=== PATIENT | female | born 1985 | race Caucasian/White ===

== ENCOUNTER → 2016-12-08 | Outpatient (CLI) | payer MEDICAID | LOC: FIMAGING 10:02 | PROVIDERS: ATTEND Obstetrics & Gynecology | DX: O99.332 Smoking (tobacco) complicating pregnancy, second trimester (principal); Z3A.19 19 weeks gestation of pregnancy ==

== ENCOUNTER 2017-04-22 06:50 | Inpatient (IN) | payer MEDICAID ==
[2017-04-22] MEDS ORDERED: AMPICILLIN SODIUM 2 GM in NS 100 ML IV ONE ×2 (09:07→09:30)
[2017-04-22 09:09] LABS: ADD DIFF? NO; ADD MORPH? NO; ADD SCAN? NO; ATYPICAL LYMPHOCYTE FLAG 0 (0-99); FRAGMENT RBC FLAG 0 (0-99); HEMATOCRIT 37.6 % (38.0-47.0); HEMOGLOBIN 12.8 g/dL (12.6-16.3); LEFT SHIFT FLG 0 (0-99); LIPEMIA HEMOLYSIS FLAG 90 (0-99); MEAN CELL HEMOGLOBIN 29.9 pg (27.9-34.1); MEAN CELL VOLUME 87.9 fL (81.5-99.8); MEAN PLATELET VOLUME 11.5 fL (8.7-11.7); PLATELET CLUMPS FLAG 0 (0-99); PLATELET COUNT 322 10^3/uL (150-400); RED BLOOD CELL COUNT 4.28 10^6/uL (4.18-5.33); RED CELL DISTRIBUTION WIDTH 13.9 % (11.5-15.2)
[2017-04-22 09:26] LABS: PHENCYCLIDINE URINE BCH < 6 ng/ml (NEGATIVE); PHENCYCLIDINE URINE BCH NEGATIVE (NEGATIVE); TETRAHYDROCANNABINOL URINE < 5 ng/mL (NEGATIVE); TETRAHYDROCANNABINOL URINE NEGATIVE (NEGATIVE)
[2017-04-22] MEDS ORDERED: LR 1,000 ML IV PRN (11:21)
[2017-04-22] MEDS ORDERED: TERBUTALINE SULFATE 1 MG/ML VIAL IV PRN (11:21)
[2017-04-22] MEDS ORDERED: EPSOM SALT 454 GM TP PRN (11:21)
[2017-04-22] MEDS ORDERED: OLIVE OIL 118 ML BTL MISC PRN (11:21)
[2017-04-22] MEDS ORDERED: OXYTOCIN/RINGERS LACTATE 1,000 ML IV PRN (11:21)
[2017-04-22] MEDS: NICOTINE 21 MG/24 HR PATCH TD SCH (11:56)
[2017-04-22] MEDS ORDERED: OXYTOCIN 10 UNIT/ML VIAL ONE (12:47)
[2017-04-22] MEDS ORDERED: TERBUTALINE SULFATE 1 MG/ML VIAL ONE (12:47)
[2017-04-22] MEDS ORDERED: LIDOCAINE 1% 300 MG/30 ML SDV ONE (12:47)
[2017-04-22] MEDS ORDERED: OLIVE OIL 118 ML BTL ONE (12:47)
[2017-04-22] MEDS ORDERED: AMMONIA AROMATIC 1 EACH AMP IH ONE (12:47)
[2017-04-22] MEDS ORDERED: MISOPROSTOL 200 MCG TAB ONE (12:48)
--- NOTE | 2017-04-22 13:25 | GHP ---
[f rep st] PREOP HISTORY AND PHYSICAL DATE OF ADMISSION: 04/22/2017 HISTORY OF PRESENT ILLNESS: The patient is a 31-year-old G1, P0, at 39 weeks gestation with an estim ated due date of 04/29/2017, who presents with complaints of leakage of fluid since approximately 3:0 0 a.m. and mild contraction discomfort. Upon admission, the patient was noted to have a small amount of clear leakage of fluid, and was confirmed positive with AmniSure and Nitrazine. The patient was noted to have contractions on the monitor, but not always palpating any discomfort. The patient has had increasing contraction discomfort during the time on Labor and Delivery. The patient had scant p ink tinged discharge last night. She reports good movement. The patient has had care since [address] Hawkins in [place]. The patient has a significant history durin g the first trimester of with exposure to meth and alcohol. The patient is also a tobacco smoker. The patient is admitted for rupture of membranes with early contraction pattern. HISTORY: records have been obtained from [facility], and do show that the patient had consistent visits after November 14. The patient did have several ultrasounds evaluating for growth. Her first an anatomy ultrasound was December [address] Ford at [facility]. There was no anatomic abnormaliti es noted, but with no ability to totally rule out FAS. The patient also had a growth ultrasound in matti and also March 21, and the most recent ultrasound reveals estimated weight at the 34th p ercentile. At that time, the baby was breech. LABORATORY DATA: Full records and labs are reviewed. Maternal blood type is A positive wit h negative antibody screen. CBC showed hemoglobin 12.5, hematocrit 36.9, and platelets of 354. Hepa titis B surface antigen was nonreactive. HIV nonreactive. Syphilis test was negative. Rubella anti body was nonimmune. Quad screen was negative. Urine culture was negative. Vaginal culture revealed Gardnerella in November. Complete drug screen in November was negative. Pap smear November 14 revealed negative di agnosis, but positive HPV, negative for type 16 and 18. Gonorrhea and chlamydia were negative. One- hour Glucola was normal. GBS culture was positive. PAST MEDICAL HISTORY: The patient reports being told that she had polycystic ovarian syndrome with l ifelong pattern of oligomenorrhea with 2-3 menses a year. She was told that she would never be able to conceive, and states that is the reason she has never used control. The patient also had ch ickenpox as a child, and also reports shingles outbreak on her right mid chest area 2-3 years ago. PAST SURGICAL HISTORY: Negative. PAST OBSTETRIC HISTORY: The patient denies any prior conceptions. 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 The patient denies ever having had sexually transmitted infection in the past. Reports in the past she did have an abnormal Pap smear, and had a biopsy at one point, but denies remembering cr yotherapy or a LEEP procedure. ALLERGIES: The patient has no known drug allergies. CURRENT MEDICATIONS: Denies any medications. SOCIAL HISTORY: The patient reports she currently smokes 1 pack a day. Reports using meth for appro ximately 6 months when she was 17, and then restarted the habit several years ago. Also reports alco hol abuse in the past. The patient reports abstaining for approximately 20 days prior to October. How ever, relapsed shortly, and then reports that she has now abstained since November 01. Again, a urine d rug screen on November 14 was negative. The patient denies any other drugs other than IV meth, and alcohol , and is currently a smoker, and has a history of pot use. REVIEW OF SYSTEMS: A 10-point review of systems done, and above noted findings in HPI. PHYSICAL EXAM: GENERAL: Upon admission, the patient is a well-developed, well-nourished, white fema le, currently having more physical discomfort with the contractions. Many she can still talk through , but some are more intense when breathing through them. VITAL SIGNS: Noted in nursing documentatio n, normal. The patient is afebrile. heart tone monitoring effected quite a bit by baby moveme nt, but does show baseline in the 130s with good variability and accelerations, but not prolonged mon itoring to satisfy a category 1 tracing. Contractions noted every 3-5 minutes. PELVIC EXAM: There is clear fluid noted. Cervix is 1 cm dilated, 85% effaced, and -1 station. Vertex is verified by ul trasound and on manual exam. EXTREMITIES: Nontender and no edema noted. Urine drug screen is obtai martha and is negative. ASSESSMENT: 1. Intrauterine at 39 weeks gestation with estimated due date of 04/29, based on a 19 week 5 day exam. 2. Positive group B Streptococcus, and the patient is receiving ampicillin. 3. Spontaneous rupture of membranes at 3:00 a.m. 4. History of methamphetamine and alcohol use in the first trimester. Anatomy ultrasound at 19 week s and quad screen negative. PLAN: We will do expectant management at this point with IV ampicillin. The patient is aware of keyur n medication options, and desires an epidural when the contractions increase. The patient is aware t hat Pitocin might be needed to increase the contraction pattern. The patient knows Beef Grinder w ill be contacted with her history of drug exposure. The patient is a tobacco user, and a [facility] is ordered. /[id number]/MODL
[2017-04-22] MEDS: AMPICILLIN SODIUM 1 GM in NS 100 ML IV SCH ×3 (13:35→23:19)
[2017-04-22] MEDS ORDERED: fentaNYL 100 MCG/2 ML INJ ONE (14:14)
[2017-04-22] MEDS ORDERED: PHENYLEPHRINE HCL 100 MCG/ML SYR ONE (14:22)
[2017-04-22] MEDS ORDERED: fentaNYL 2MCG/ML/BUP 0.1% RTU 100 ML BAG EP ONE (14:33)
[2017-04-22] MEDS ORDERED: PHENYLEPHRINE HCL 100 MCG/ML SYR IVP PRN (14:53)
[2017-04-22] MEDS ORDERED: ONDANSETRON 4 MG/2 ML VIAL IVP PRN (14:53)
[2017-04-22] MEDS ORDERED: NALOXONE HCL 0.4 MG/ML INJ IVP PRN (14:53)
[2017-04-22] MEDS ORDERED: METOCLOPRAMIDE 10 MG/2 ML VIAL IVP PRN (14:53)
[2017-04-22] MEDS ORDERED: LR 500 ML IV SCH (15:00)
[2017-04-22] MEDS ORDERED: fentaNYL 2MCG/ML/BUP 0.1% RTU 100 ML EP SCH (15:00)
[2017-04-22] MEDS ORDERED: LR 500 ML IV PRN (15:52)
--- NOTE | 2017-04-22 15:57 | OBPROG ---
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 04/22/17 15:53 Subjective/Intrapartum Course: 04/22/17 15:55 pt now comf with MONICA, per RN exam shows no change, still 1 cm dilated and ctxns spaced, with some hypotension with MONICA placement, but good tolerance by FHTs Objective: 04/22/17 08:40 Patient ABO/Rh A POSITIVE 04/22/17 08:40 - SVE Dilation (cm): 1 Effacement (%): 80 Station: -1 Membranes: SROM Amniotic Fluid Color: Clear - Contraction Pattern Assessment Current Contraction Pattern: Irregular - FHR Assessment Ledesma FHR (bpm): 120 FHR Pattern Variability: Moderate FHR Category: 2 (mod variability but with some transient variables) Oxytocin Orders Assessment - Pre-Induction/Augmentation Assessment Indication: protracted labor after SROM Presentation: Vertex Gestational Age: 39 week(s) and 0 day(s) Gestational Age Determined By: Ultrasound Estimated Weight: 2501-3400g Membrane Status: Ruptured Current Sterile Vaginal Exam (SVE): /-1 Current Contraction Pattern: Irregular - Heart Rate Pattern Led[place]ma FHR Baseline (bpm): 120 FHR Category: 2 FHR Pattern Variability: Moderate FHR Accelerations: Present FHR Decelerations: Variable - Motley's Score Dilation: 1-2cm Effacement: 80+ Station: -1,0 Cervix: Medium Cervix Position: Mid Motley Score Total: 8 - Induction/Augmentation Consent Risks/Benefits of Procedure Reviewed/Pt Agrees to Proceed: Yes ICD10 Worksheet Patient Problems: Problems Problem Status Onset Drug use complicating in first trimester Acute GBS carrier Acute SROM (spontaneous rupture of membranes) Acute
[2017-04-22] MEDS ORDERED: OXYTOCIN/RINGERS LACTATE 500 ML IV SCH (16:00)
[2017-04-22] MEDS ORDERED: OXYTOCIN/LR *STANDARD DOSE PROTOCOL IV SCH (16:30)
--- NOTE | 2017-04-22 19:04 | OBPROG ---
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 04/22/17 19:02 Objective: 04/22/17 08:40 Patient ABO/Rh A POSITIVE 04/22/17 08:40 - SVE Dilation (cm): 10 Effacement (%): 100 Station: 0 Membranes: SROM Amniotic Fluid Color: Clear Dilation Complete Date: 04/22/17 Dilation Complete Time: 19:00 - Contraction Pattern Assessment Current Contraction Pattern: Regular (q 3-4 min on pit), Irregular - FHR Assessment Led[place]ma FHR (bpm): 120 FHR Pattern Variability: Moderate FHR Category: 2 (with variables) - Physical Exam Estimated Weight: 2501-3400g Oxytocin Orders Assessment - Pre-Induction/Augmentation Assessment Presentation: Vertex Gestational Age: 39 week(s) and 0 day(s) Estimated Weight: 2501-3400g ICD10 Worksheet Patient Problems: Problems Problem Status Onset Drug use complicating in first trimester Acute GBS carrier Acute SROM (spontaneous rupture of membranes) Acute
[2017-04-22] MEDS ORDERED: ACETAMINOPHEN 325 MG TAB PO PRN (20:26)
--- NOTE | 2017-04-22 20:31 | OBDEL ---
Info Type: Vaginal Presentation at Delivery: Vertex L&D Analgesia/Anesthesia Type: Epidural GBS+: Yes Antibiotic Used for + GBS: Ampicillin Intrapartum Medications: Generic Name Dose Route Start Last Admin Trade Name Freq PRN Reason Stop Dose Admin Ampicillin Sodium 1 gm/ Sodium 100 mls @ 200 mls/hr 04/22/17 09:15 04/22/17 17:20 Chloride IV 05/22/17 09:14 100 mls Q4H HARRIET Administration Protocol Nicotine 21 mg 04/22/17 11:30 04/22/17 11:56 Nicoderm Cq TD 10/19/17 11:29 21 mg DAILY HARRIET Administration Discontinued Medications Generic Name Dose Route Start Last Admin Trade Name Freq PRN Reason Stop Dose Admin Ampicillin Sodium 2 gm/ Sodium 110 mls @ 220 mls/hr 04/22/17 09:30 04/22/17 09:33 Chloride IV 04/22/17 09:59 110 mls ONCE ONE Administration - Infant Care Provider Inventory Control Planner/PREDATORY ANIMAL EXTERMINATOR: Cherise Ku - Hospital Course Intrapartum: 04/22/17 15:55 pt with MONICA, feeling pressure like BM. 04/22/17 19:02 Indications for Delivery: SROM Vaginal Delivery - Delivery Provider Delivery Physician/CNM: Essence Mattson - Labor and Delivery Onset of Contractions Date: 04/22/17 Onset of Contractions Time: 09:00 Onset of Contractions Type: Spontaneous Rupture of Membranes Date: 04/22/17 Rupture of Membranes Time: 03:00 Rupture of Membranes Type: Spontaneous Amniotic Fluid Color: Clear Dilation Complete Date: 04/22/17 Dilation Complete Time: 18:57 Placenta Delivery Date: 04/22/17 Placenta Delivery Time: 20:06 Total Hours of Labor: 11 Laceration: 1st Degree (left periurethral and first degree right perineal) Repair: Other (Specify) (none needed) Vaginal Sponge Count Correct: Yes Vaginal Needle Count Correct: Yes Vaginal Sweep Performed: No EBL: 300 Delivery Events: Nuchal Cord (x1 and body cord x1) - Medications Labor Augmentation/Induction Methods Used: Pitocin Labor Augmentation/Induction Indication: Contraction Strength Inadequate [place] Data [place]ma Delivery Date: 04/22/17 Delivery Time: 19:56 ERNA: 04/29/17 Gestational Age: 39 week(s) and 0 day(s) Sex of Infant: Female (Etelvina) Score (1 Min): 7 Score (5 Min): 9 ICD10 Worksheet Patient Problems: Problems Problem Status Onset (spontaneous vaginal delivery) Acute GBS carrier Acute Drug use complicating in first trimester Acute
[2017-04-22] MEDS: IBUPROFEN 600 MG TAB PO PRN (22:52)
[2017-04-23] MEDS: AMPICILLIN SODIUM 1 GM in NS 100 ML IV SCH (01:07)
[2017-04-23] MEDS: IBUPROFEN 600 MG TAB PO PRN ×3 (07:39→20:01)
--- NOTE | 2017-04-23 10:18 | OBPP ---
Progress Note Assessment/Plan: Assessment: ppd# 1 s/p meth and etoh use in - dc'd in early second trimester late care walk in tobacco use breast feeding Plan: nicotine patch routine post care 04/23/17 10:15 Subjective/ Course: 04/23/17 10:16 patient is doing well. really want to go smoke. has nicotine patch. discussed 5x increase risk of SIDS in moms who smoke. advised against smoking and just using the patch. patient will likely decline and go smoke. denies headache, changes in vision, working on breast feeding. pain is controlled. passing gas. normal lochia. Objective: 04/23/17 06:40 Patient ABO/Rh A POSITIVE 04/22/17 08:40 Temp Pulse Resp BP Pulse Ox 36.7 C 83 20 96/59 L 95 04/23/17 00:30 04/23/17 00:30 04/23/17 00:30 04/23/17 00:30 04/23/17 00:30 Physical Exam - Physical Exam Neck: non-tender, full range of motion, supple, normal inspection Respiratory: chest non-tender, lungs clear, normal breath sounds Cardiac/Chest: normal peripheral pulses, regular rate, rhythm Abdomen: normal bowel sounds, non-tender, other (fundus firm and non tender) Extremities: normal range of motion, non-tender, normal inspection, normal capillary refill Skin: normal color, warm/dry Neuro/Psych: no motor/sensory deficits, alert, normal mood/affect, oriented x 3
[2017-04-23] MEDS: NICOTINE 21 MG/24 HR PATCH TD SCH (10:58)
--- NOTE | 2017-04-23 14:45 | ASMTCMCOM ---
CM Note CM Note Notes: Patient living at [facility] in [place]. She will go to her brother's home in [place] for 1wk on discharge then will return to [facility] for continued assist with parenting, housing, school, WIC, CIP, etc. Her parents are here from [place] and will be assisting her when she gets to [place]. Her CM at [facility] is Sera [phone]. This CM called Srea's # and left a message. Mother reported that she had been using substances and wanted to quit and statrted a 45 day program through her Probation, TRT in her first trimester. She is also involved in [employer]. She is working on transitional housing and the ability to go to school. Very motivated to do the right thing for her new baby, . CPS, Lis Bynum [phone] contacted. Patient can be discharged when medically ready. Date Signed: 04/23/2017 02:45 PM Electronically Signed By:Fannie Staples LCSW
[2017-04-23 21:09] VITALS: O2SAT 97
[2017-04-24] MEDS: IBUPROFEN 600 MG TAB PO PRN ×2 (01:53→09:06)
--- NOTE | 2017-04-24 08:42 | OBGCSDC ---
General Delivery Information - General Info : 1 Para: 1 Abortions: 0 Type: Vaginal L&D Analgesia/Anesthesia Type: Epidural Admission Date: 04/22/17 Labs: Patient ABO/Rh A POSITIVE 04/22/17 08:40 Hct 35.3 % (38.0-47.0) L 04/23/17 06:40 - Hospital Course Intrapartum: 04/22/17 15:55 pt with MONICA, feeling pressure like BM. 04/22/17 19:02 : 04/23/17 10:16 patient is doing well. really want to go smoke. has nicotine patch. discussed 5x increase risk of SIDS in moms who smoke. advised against smoking and just using the patch. patient will likely decline and go smoke. denies headache, changes in vision, working on breast feeding. pain is controlled. passing gas. normal lochia. 04/24/17 08:39 SUBJ: Patient is doing well this morning. She denies significant pain, reports minimal lochia and is . She desires discharge home today. OBJ: VSS General: NAD HENT: atraumatic, normocephalic Lungs: CTAB Heart: RRR Abdomen: soft, FF, below umbilicus Extremities: no excessive edema Hct: stable PP (35.3) Vaginal - Delivery Provider Delivery Physician/CNM: Essence Mattson - Diagnosis Labor: Spontaneous Rupture of Membranes Type: Spontaneous Amniotic Fluid Color: Clear Laceration: 1st Degree (left periurethral and first degree right perineal) Repair: Other (Specify) (none needed) Delivery Events: Nuchal Cord (x1 and body cord x1) - Delivery EBL: 300 [place] Data Ledesma Delivery Date: 04/22/17 Delivery Time: 19:56 ERNA: 04/29/17 Gestational Age: 39 week(s) and 2 day(s) Sex of Infant: Female Edwards Weight (gm): 2796 g Score (1 Min): 7 Score (5 Min): 9 Discharge Information - Discharge Information Prescriptions: Ibuprofen [Motrin (*)] 600 mg PO Q6HRS PRN #40 tab PRN Reason: post , inflammation Instruction/Follow Up: Six Weeks (Will f/u with Dr. Wolfgang Hawkins @ [facility])
[2017-04-24] MEDS ORDERED: MEASLES,MUMPS&RUBELLA VACC/PF 0.5 ML VIAL SC ONE (08:46)
[2017-04-24] MEDS: NICOTINE 21 MG/24 HR PATCH TD SCH (09:11)
[2017-04-24 09:44] VITALS: BP 112/75; PULSE 99; RESP 17; TEMP 97.9
== END 2017-04-24 15:45 | disposition home or self-care (01) | DRG 775 ==
LOC: FLD 06:50 → OBSVTOIN 15:10 → FOB 22:45
PROVIDERS: ADMIT Obstetrics & Gynecology; ATTEND Obstetrics & Gynecology Gynecology
PROC: 0HQ9XZZ Repair Perineum Skin, External Approach (ICD-10-PCS; principal; 2017-04-22)
PROC: 10E0XZZ Delivery of Products of Conception, External Approach (ICD-10-PCS; principal; 2017-04-22)
PROC: 3E03329 Introduction of Other Anti-infective into Peripheral Vein, Percutaneous Approach (ICD-10-PCS; principal; 2017-04-22)
DX: O42.02 Full-term premature rupture of membranes, onset of labor within 24 hours of rupture (principal); O70.0 First degree perineal laceration during delivery; O99.334 Smoking (tobacco) complicating childbirth; O69.89X0 Labor and delivery complicated by other cord complications, not applicable or unspecified; O99.824 Streptococcus B carrier state complicating childbirth; F17.210 Nicotine dependence, cigarettes, uncomplicated; Z67.10 Type A blood, Rh positive; Z87.898 Personal history of other specified conditions; Z3A.39 39 weeks gestation of pregnancy; Z37.0 Single live birth; Z23 Encounter for immunization
CPT/HCPCS: 80307; G0480; J0290; J2370; J3010; J3105